=== PATIENT | male | born 1955 | race Caucasian/White ===

== ENCOUNTER → 2017-02-15 | Outpatient (CLI) | payer OTHER | LOC: MW.CHUR 14:26 | PROVIDERS: ATTEND Urology | DX: R35.0 Frequency of micturition (principal); N41.1 Chronic prostatitis | CPT/HCPCS: 81001 ==

== ENCOUNTER → 2017-02-28 | Outpatient (CLI) | payer OTHER | LOC: MW.CHUR 16:03 | PROVIDERS: ATTEND Urology | DX: R35.0 Frequency of micturition (principal); N41.1 Chronic prostatitis | CPT/HCPCS: 81001 ==

== ENCOUNTER 2017-04-18 22:03 | Emergency (ER) | payer OTHER ==
[2017-04-18] MEDS ORDERED: Lidocaine 1% 20 ML MDV INJECT ONE (22:17)
--- NOTE | 2017-04-18 22:19 | EDM.PDOC ---
ED HPI GENERAL MEDICAL PROBLEM - General Chief Complaint: Laceration Stated Complaint: PT FELL AND HURT NOSE Time Seen by Provider: 04/18/17 22:17 Source of Information: Reports: Patient - History of Present Illness INITIAL COMMENTS - FREE TEXT/NARRATIVE: HISTORY AND PHYSICAL: History of present illness: Patient presents with a laceration over the bridge of his nose 1.5 cm, he tripped and fell this morning at 8 AM denies any other injury or loss of consciousness, his glasses cut the bridge of his nose and he presents as such No fever nausea vomiting chills sweats Review of systems: As per history of present illness and below otherwise all systems reviewed and negative. Past medical history: As per history of present illness and as reviewed below otherwise noncontributory. Surgical history: As per history of present illness and as reviewed below otherwise noncontributory. Social history: No reported history of drug or alcohol abuse. Family history: As per history of present illness and as reviewed below otherwise noncontributory. Physical exam: HEENT: Atraumatic, normocephalic, pupils reactive, negative for conjunctival pallor or scleral icterus, mucous membranes moist, throat clear, neck supple, nontender, trachea midline. Lungs: Clear to auscultation, breath sounds equal bilaterally, chest nontender. Heart: S1S2, regular, negative for clicks, rubs, or JVD. Abdomen: Soft, nondistended, nontender. Negative for masses or hepatosplenomegaly. Negative for costovertebral tenderness. Pelvis: Stable nontender. Genitourinary: Deferred. Rectal: Deferred. Extremities: Atraumatic, negative for cords or calf pain. Neurovascular unremarkable. Neuro: Awake, alert, oriented. Cranial nerves II through XII unremarkable. Cerebellum unremarkable. Motor and sensory unremarkable throughout. Exam nonfocal. Skin as per history of present illness otherwise unremarkable Diagnostics: [] Therapeutics: []Lidocaine Tetanus status is updated #3 5-0 Monosof sutures interrupted Standard wound care instructions Bactrim double strength by mouth twice a day #20 no refill Impression: []1.5 cm linear laceration Definitive disposition and diagnosis as appropriate pending reevaluation and review of above. nasal area Pain Score (Numeric/FACES): 1 - Related Data Allergies Allergy/AdvReac Type Severity Reaction Status Date / Time lisinopril Allergy Cough Verified 04/18/17 22:12 Penicillins Allergy Hives Verified 04/18/17 22:12 Home Meds: Home Meds Aspirin [[place] Aspirin] 81 mg PO DAILY 08/25/16 [History] Ergocalciferol (Vitamin D2) [Vitamin D] 400 units PO DAILY 08/25/16 [History] Fish Oil/DHA/EPA [Fish Oil 1,200 MG] 1 tab PO DAILY 08/25/16 [History] Venlafaxine HCl [Venlafaxine HCl ER] 150 mg PO DAILY 08/25/16 [History] atorvaSTATin Calcium [Atorvastatin Calcium] 40 mg PO BEDTIME 08/25/16 [History] Past Medical History Cardiovascular History: Reports: High Cholesterol, Hypertension, [place] Other Cardiovascular History: states hx of mild MD in '06 with reduction in EF. Good exercize tolerance. EKG done yesterday Respiratory History: Reports: Sleep Apnea Other Respiratory History: does not use CPAP Gastrointestinal History: Reports: Colon Polyp Genitourinary History: Reports: BPH Musculoskeletal History: Reports: RA Psychiatric History: Reports: Depression Endocrine/Metabolic History: Reports: Obesity/BMI 30+ (BMI 43.7) - Past Surgical History Head Surgeries/Procedures: Reports: None Other Cardiovascular Surgeries/Procedures: states had angiogram and everything was ok, no stents GI Surgical History: Reports: Colonoscopy (3 years ago) Social & Family History - Tobacco Use Smoking Status *Q: Never Smoker - Recreational Drug Use Drug Use in Last 12 Months: Yes Recreational Drug Type: Reports: Marijuana/Hashish (medical marijuana to treat RA) Other Recreational Drug Type: smokes marijuana to relieve arthritic pain, Recreational Drug Use Frequency: Weekly Recreational Drug Last Use: 08/22/16 ED ROS GENERAL - Review of Systems Review Of Systems: ROS reveals no pertinent complaints other than HPI. ED EXAM, SKIN/RASH Exam: See Below Course - Vital Signs Last Recorded V/S: Last Vital Signs Temp 36.1 C 04/18/17 22:12 Pulse 82 04/18/17 22:12 Resp 16 04/18/17 22:12 BP 129/83 04/18/17 22:12 Pulse Ox 98 04/18/17 22:12 - Orders/Labs/Meds Orders: Active Orders 24 hr Category Date Time Status Vaccines to be Administered [RC] PER UNIT ROUTINE Care 04/18/17 22:22 Active Meds: Medications Discontinued Medications Generic Name Dose Route Start Last Admin Trade Name [place] PRN Reason Stop Dose Admin Diphtheria/Tetanus/Acell Pertussis 0.5 ml 04/18/17 22:22 04/18/17 22:29 Adacel IM 04/18/17 22:23 0.5 ml .ONCE ONE Administration Lidocaine HCl 20 ml 04/18/17 22:17 04/18/17 22:29 Xylocaine 1% INJECT 04/18/17 22:18 20 ml ONETIME ONE Administration Departure - Departure Time of Disposition: 22:55 Disposition: Home, Self-Care 01 Condition: Good Clinical Impression: Laceration - Discharge Information Forms: ED Department Discharge Additional Instructions: Standard wound care as instructed Return if symptoms persist or worsen or fever nausea vomiting chills sweats pus drainage despite antibiotics Medication as prescribed Sutures out in 7 days The following information is given to patients seen in the emergency department who are being discharged to home. This information is to outline your options for follow-up care. We provide all patients seen in our emergency department with a follow-up referral. The need for follow-up, as well as the timing and circumstances, are variable depending upon the specifics of your emergency department visit. If you don't have a primary care physician on staff, we will provide you with a referral. We always advise you to contact your personal physician following an emergency department visit to inform them of the circumstance of the visit and for follow-up with them and/or the need for any referrals to a consulting specialist. The emergency department will also refer you to a specialist when appropriate. This referral assures that you have the opportunity for follow-up care with a specialist. All of these measure are taken in an effort to provide you with optimal care, which includes your follow-up. Under all circumstances we always encourage you to contact your private physician who remains a resource for coordinating your care. When calling for follow-up care, please make the office aware that this follow-up is from your recent emergency room visit. If for any reason you are refused follow-up, please contact the [facility] emergency department at and asked to speak to the emergency department charge nurse. - My Orders Last 24 Hours: My Active Orders 04/18/17 22:22 Vaccines to be Administered [RC] PER UNIT ROUTINE - Assessment/Plan Last 24 Hours: My Active Orders 04/18/17 22:22 Vaccines to be Administered [RC] PER UNIT ROUTINE
[2017-04-18] MEDS ORDERED: Diphtheria,Pertussis(Acell),Tetanus Vaccine 0.5 ML Syringe IM ONE (22:22)
[2017-04-18 23:07] VITALS: BP 129/76
== END 2017-04-18 23:05 | disposition home or self-care (01) ==
LOC: MW.ED 22:03
DX: S01.21XA Laceration without foreign body of nose, initial encounter (principal); E78.00 Pure hypercholesterolemia, unspecified; I10 Essential (primary) hypertension; I25.2 Old myocardial infarction; F32.9 Major depressive disorder, single episode, unspecified; E66.9 Obesity, unspecified; Z88.0 Allergy status to penicillin; Z68.41 Body mass index [BMI] 40.0-44.9, adult; Z79.82 Long term (current) use of aspirin; Z79.899 Other long term (current) drug therapy; W01.0XXA Fall on same level from slipping, tripping and stumbling without subsequent striking against object, initial encounter
CPT/HCPCS: 12011; 90471; 90715; 99282-25; 99283

== ENCOUNTER 2019-11-27 06:33 | Day surgery (SDC) | payer OTHER ==
[~2019-11-27 06:33] MED LIST: Lactated Ringers 1,000 ML IV SCH
--- NOTE | 2019-11-27 07:05 | PCM.PREANE ---
Preanesthetic Assessment - Anesthesia/Transfusion/Family Hx Anesthesia History: Prior Anesthesia Without Reaction Family History of Anesthesia Reaction: No Transfusion History: No Prior Transfusion(s) Intubation History: Unknown - Review of Systems General: No Symptoms Pulmonary: No Symptoms Cardiovascular: No Symptoms Gastrointestinal: No Symptoms, Other (h/o colon polyps '13 x2 and '16 x1) Neurological: No Symptoms Other: Reports: None - Physical Assessment Height: 5 ft 11 in Weight: 146.057 kg ASA Class: 3 Mental Status: Alert & Oriented x3 Airway Class: Mallampati = 2 Dentition: Reports: Normal Dentition, [place](s) (x4 right lowwer and x1 left upper) Thyro-Mental Finger Breadths: 3 Mouth Opening Finger Breadths: 3 ROM/Head Extension: Full Lungs: Clear to Auscultation, Normal Respiratory Effort Cardiovascular: Regular Rate, Regular Rhythm - Allergies Allergies/Adverse Reactions: Allergies Allergy/AdvReac Type Severity Reaction Status Date / Time lisinopril Allergy Cough Verified 11/22/19 07:05 Penicillins Allergy Hives Verified 11/22/19 07:05 - Blood Blood Available: No - Anesthesia Plan Pre-Op Medication Ordered: None - Acknowledgements Anesthesia Type Planned: MAC Pt an Appropriate Candidate for the Planned Anesthesia: Yes Alternatives and Risks of Anesthesia Discussed w Pt/Guardian: Yes Pt/Guardian Understands and Agrees with Anesthesia Plan: Yes PreAnesthesia Questionnaire HEENT History: Reports: Other (See Below) Other HEENT History: wears glasses Cardiovascular History: Reports: High Cholesterol, Hypertension, [place] Other Cardiovascular History: states hx of stress related heart attack ( small one in '06 ), showed up on EKG, angiogram done with no blockage, was informed that one ventricle is pumping at 60% Respiratory History: Reports: None, Other (See Below) (quationable sleep apnea, never been tested) Gastrointestinal History: Reports: Colon Polyp Genitourinary History: Reports: BPH Musculoskeletal History: Reports: Osteoarthritis Other Musculoskeletal History: chronic shoulder and neck pain, Neurological History: Reports: None Psychiatric History: Reports: Depression, Other (See Below) Other Psychiatric History: states "due to stress related heart attack they put me on venlafaxine" Endocrine/Metabolic History: Reports: Obesity/BMI 30+ Other Endocrine/Metabolic History: "prediabetic" on victoza Hematologic History: Reports: None Immunologic History: Reports: None Oncologic (Cancer) History: Reports: None Dermatologic History: Reports: None - Infectious Disease History Infectious Disease History: Reports: None - Past Surgical History Head Surgeries/Procedures: Reports: None HEENT Surgical History: Reports: None Cardiovascular Surgical History: Reports: Other (See Below) Other Cardiovascular Surgeries/Procedures: states had angiogram and everything was ok, no stents Respiratory Surgical History: Reports: None GI Surgical History: Reports: Colonoscopy (x2 and ) Male Surgical History: Reports: None Endocrine Surgical History: Reports: None Neurological Surgical History: Reports: None Musculoskeletal Surgical History: Reports: None Oncologic Surgical History: Reports: None Dermatological Surgical History: Reports: None - SUBSTANCE USE Smoking Status *Q: Never Smoker Recreational Drug Type: Reports: Marijuana/Hashish - HOME MEDS Home Medications: Home Meds Aspirin [[place] Aspirin EC] 81 mg PO DAILY 08/25/16 [History] Venlafaxine HCl [Venlafaxine HCl ER] 150 mg PO DAILY 08/25/16 [History] atorvaSTATin Calcium [Atorvastatin Calcium] 40 mg PO BEDTIME 08/25/16 [History] Cyclobenzaprine HCl 10 mg PO ASDIRECTED PRN 11/22/19 [History] Liraglutide [Victoza] 1 injection SUBCUT ASDIRECTED 11/22/19 [History] Losartan Potassium 25 mg PO DAILY 11/22/19 [History] - CURRENT (IN HOUSE) MEDS Current Meds: Current Medications Lactated Ringer's (Ringers, Lactated) 1,000 mls @ 125 mls/hr IV ASDIRECTED [facility]
[2019-11-27] MEDS ORDERED: Midazolam 1 MG/ML 2 ML SDV ONE (07:17)
[2019-11-27] MEDS ORDERED: Propofol 200 MG/20 ML SDV ONE (07:17)
[2019-11-27] MEDS ORDERED: fentaNYL 100 MCG/2 ML SDV ONE (07:17)
[2019-11-27] MEDS ORDERED: Ondansetron 4 MG/2 ML SDV ONE (07:17)
--- NOTE | 2019-11-27 08:43 | PCM.OPNOTE ---
- General Post-Op/Procedure Note Date of Surgery/Procedure: 11/27/19 Operative Procedure(s): colonoscopy with biopsy Findings: see [id number] Pre Op Diagnosis: increase constipation Post-Op Diagnosis: Same Anesthesia Technique: Moderate Sedation Primary Surgeon: Abhi Jones Pathology: biospy at 25cm to 30cm when scope withdrawal for hyperemic Complications: None Condition: Good
--- NOTE | 2019-11-27 08:51 | PCM.POSTAN ---
POST ANESTHESIA ASSESSMENT - MENTAL STATUS Mental Status: Alert, Oriented - VITAL SIGNS Vital Signs: Last Vital Signs Temp 36.5 C 11/27/19 06:45 Pulse 71 11/27/19 08:43 Resp 13 11/27/19 08:43 BP 113/66 11/27/19 08:43 Pulse Ox 93 L 11/27/19 08:43 - RESPIRATORY Respiratory Status: Respiratory Rate WNL, Airway Patent, O2 Saturation Stable - CARDIOVASCULAR CV Status: Pulse Rate WNL, Blood Pressure Stable - GASTROINTESTINAL GI Status: No Symptoms - PAIN Pain Score: 0 - POST OP HYDRATION Hydration Status: Adequate & Stable - OBSERVATIONS Free Text/Narrative:: No anesthesia problems.
--- NOTE | 2019-11-27 09:03 | PCM48HPAN ---
Post Anesthesia Note - EVALUATION WITHIN 48HRS OF ANESTHETIC Vital Signs in Normal Range: Yes Patient Participated in Evaluation: Yes Respiratory Function Stable: Yes Airway Patent: Yes Cardiovascular Function Stable: Yes Hydration Status Stable: Yes Pain Control Satisfactory: Yes Nausea and Vomiting Control Satisfactory: Yes Mental Status Recovered: Yes Vital Signs: Last Vital Signs Temp 36.5 C 11/27/19 06:45 Pulse 71 11/27/19 08:43 Resp 13 11/27/19 08:43 BP 113/66 11/27/19 08:43 Pulse Ox 93 L 11/27/19 08:43 - COMMENTS/OBSERVATIONS Free Text/Narrative:: No anesthesia problems.
[2019-11-27 09:44] VITALS: BP 111/41; PULSE 72
--- NOTE | 2019-11-27 11:26 | OR ---
SURGEON: Abhi Jones MD DATE OF PROCEDURE: 11/27/2019 PREOPERATIVE DIAGNOSES: Increased constipation and history of colon polyp. POSTOPERATIVE DIAGNOSES: Increased constipation and history of colon polyp. PROCEDURE PERFORMED: Colonoscopy with biopsy. PRIMARY SURGEON: Abhi Jones MD. COMPLICATIONS: None. DESCRIPTION OF PROCEDURE: The patient was taken to the endoscopy room. A time out was called, patient identified, and procedure identified. Diprivan was then administrated. Patient went from awake to sleep, hearing doctor talking or door closing is normal. Perineum inspection and digital examination were then performed. A well- lubricated colonoscope was gently inserted through the rectum, advanced past the rectosigmoid junction, the descending colon, splenic flexure, transverse colon, hepatic flexure, ascending colon, arrived to the cecum. Cecum was identified as dictated in the finding. Then the scope was carefully withdrawn while attention was paid to the mucosal surface for any abnormality. Air will be sucked out during the scope withdrawal. At the rectum, retroflexed to examine any rectal diseases, fistula or hemorrhoids. During mucosal examination, abnormality or polyp was noted; picture taken and biopsy performed. Patient tolerated procedure well. There were no intraoperative complications, and Dr. Jones was present throughout the whole procedure. FINDINGS: 1. The patient is easily sedated with SHUTTLE TRUCK DRIVER and Diprivan, the patient is soundly snoring. 2. The patient's bowel prep is left to be desirable with tremendous amount liquid stool and covering significant area of mucosa. Despite irrigation, is not able to get a good look and this is a compromised study. On top of this, the patient is obese and has a very redundant sigmoid colon. Had to be put on his back and with pressure on the left lower quadrant in order to get to the cecum. Cecum indicated by ileocecal fold, one-to-one indentation, and appendiceal orifice. Light emittance is not observed. ScopeGuide is pointing south. Mucosa examined upon scope pulling out with constant irrigation. The patient has quite a lot of diverticula at the left colon. No signs or symptoms of inflammation to suggest diverticulitis. However, diverticulum of the lumen is almost as big as a true lumen, so for colonoscopy there are risks for possible perforation. The patient does not have polyp, but has some area seen from 25 to 30 when the scope come out, hyperemic, and random biopsy in this area performed. Two patches of hyperemia, one is at 30 cm when scope pulling out and one is at 25 cm, and both have been biopsied. If abnormal, probably have to be referred out to GI for further study. Other than that, no inflammation, mass, growth, stricture, ulceration, AV malformation observed. Tried to retroflex to look at the rectum. The patient's obesity makes it difficult. Was able to look at it by pulling the scope out slowly. The patient would benefit from repeat colonoscopy 18 months from today or if clinically indicated otherwise because of bowel prep and some of the other issue. The patient's colonoscopy is not straightforward because of obesity and tremendous redundant sigmoid colon. MARIBEL / JUAN DIEGO /[id number]
== END 2019-11-27 09:15 | disposition home or self-care (01) ==
LOC: MW.SDS 06:33
PROVIDERS: ATTEND Surgery
DX: K59.00 Constipation, unspecified (principal); Q43.8 Other specified congenital malformations of intestine; I25.10 Atherosclerotic heart disease of native coronary artery without angina pectoris; I10 Essential (primary) hypertension; E78.00 Pure hypercholesterolemia, unspecified; M17.12 Unilateral primary osteoarthritis, left knee; F32.9 Major depressive disorder, single episode, unspecified; E66.9 Obesity, unspecified; Z86.010 Personal history of colon polyps; Z88.8 Allergy status to other drugs, medicaments and biological substances; Z88.0 Allergy status to penicillin; Z79.82 Long term (current) use of aspirin; Z79.899 Other long term (current) drug therapy; Z68.41 Body mass index [BMI] 40.0-44.9, adult
CPT/HCPCS: 45380; 82962; J2250; J2405; J2704; J3010; J7120; 88305

== ENCOUNTER 2021-07-09 06:42 | Day surgery (SDC) | payer OTHER ==
[2021-07-09] MEDS ORDERED: fentaNYL 100 MCG/2 ML SDV ONE (06:58)
[2021-07-09] MEDS ORDERED: Propofol 200 MG/20 ML SDV ONE ×2 (06:58→08:02)
--- NOTE | 2021-07-09 07:17 | PCM.PREANE ---
Preanesthetic Assessment - Procedure Proposed Procedure: Colonoscopy - Anesthesia/Transfusion/Family Hx Anesthesia History: No Prior Anesthesia Other Type of Anesthesia Reaction Comment: Pt has only had sedation for Colonoscopy Family History of Anesthesia Reaction: No Transfusion History: No Prior Transfusion(s) Intubation History: Unknown - Review of Systems General: No Symptoms Pulmonary: No Symptoms Cardiovascular: No Symptoms (HTN, HLD) Gastrointestinal: No Symptoms Neurological: No Symptoms Other: Reports: None - Physical Assessment NPO Status Date: 07/07/21 NPO Status Time: 21:00 Vital Signs: Last Vital Signs Temp 96.8 F L 07/09/21 07:06 Pulse 82 07/09/21 07:06 Resp 16 07/09/21 07:06 BP 135/70 07/09/21 07:06 Pulse Ox 96 07/09/21 07:06 Height: 5 ft 11 in Weight: 144.242 kg (Morbid Obesity) ASA Class: 3 Mental Status: Alert & Oriented x3 Airway Class: Mallampati = 3 Dentition: Reports: Broken Tooth/Teeth (R, U broken root canal) Thyro-Mental Finger Breadths: 3 Mouth Opening Finger Breadths: 3 ROM/Head Extension: Full Lungs: Clear to Auscultation, Normal Respiratory Effort Cardiovascular: Regular Rate, Regular Rhythm - Allergies Allergies/Adverse Reactions: Allergies Allergy/AdvReac Type Severity Reaction Status Date / Time lisinopril Allergy Cough Verified 07/05/21 11:06 Penicillins Allergy Hives Verified 07/05/21 11:06 - Acknowledgements Anesthesia Type Planned: General Anesthesia Pt an Appropriate Candidate for the Planned Anesthesia: Yes Alternatives and Risks of Anesthesia Discussed w Pt/Guardian: Yes Pt/Guardian Understands and Agrees with Anesthesia Plan: Yes PreAnesthesia Questionnaire HEENT History: Reports: Other (See Below) Other HEENT History: wears glasswes, has lower permanent dental bridge (right side), states has infection in upper jaw per MRI- no symptoms Cardiovascular History: Reports: High Cholesterol, Hypertension, [place] Other Cardiovascular History: states [place] per EKG- no symptoms but was told it was stress related Respiratory History: Reports: None, Other (See Below) Other Respiratory History: was told by Anesthesia he had sleep apnea- has never been tested Gastrointestinal History: Reports: None Genitourinary History: Reports: BPH Musculoskeletal History: Reports: Osteoarthritis Other Musculoskeletal History: arthritis in neck Neurological History: Reports: None Psychiatric History: Reports: None Other Psychiatric History: states "due to stress related heart attack they put me on venlafaxine" Endocrine/Metabolic History: Reports: Obesity/BMI 30+, Other (See Below) Other Endocrine/Metabolic History: pre-diabetic Hematologic History: Reports: None Immunologic History: Reports: None Oncologic (Cancer) History: Reports: None Dermatologic History: Reports: None - Infectious Disease History Infectious Disease History: Reports: None - Past Surgical History Head Surgeries/Procedures: Reports: None HEENT Surgical History: Reports: None Cardiovascular Surgical History: Reports: None Other Cardiovascular Surgeries/Procedures: states had angiogram and everything was ok, no stents Respiratory Surgical History: Reports: None GI Surgical History: Reports: Colonoscopy Male Surgical History: Reports: None Endocrine Surgical History: Reports: None Neurological Surgical History: Reports: None Musculoskeletal Surgical History: Reports: None Oncologic Surgical History: Reports: None Dermatological Surgical History: Reports: None - SUBSTANCE USE Tobacco Use Status *Q: Never Tobacco User Recreational Drug Use History: Yes Recreational Drug Type: Reports: Marijuana/Hashish - HOME MEDS Home Medications: Home Meds Aspirin [[place] Aspirin EC] 81 mg PO DAILY 08/25/16 [History] Venlafaxine HCl [Venlafaxine HCl ER] 150 mg PO DAILY 08/25/16 [History] atorvaSTATin Calcium [Atorvastatin Calcium] 40 mg PO BEDTIME 08/25/16 [History] Cyclobenzaprine HCl 10 mg PO ASDIRECTED PRN 11/22/19 [History] Losartan Potassium 25 mg PO BEDTIME 11/22/19 [History] Cholecalciferol (Vitamin D3) [Vitamin D3] 400 unit PO DAILY 07/05/21 [History] Folic Acid 1 mg PO DAILY 07/05/21 [History] Multivitamin 1 tab PO DAILY 07/05/21 [History] Semaglutide [Ozempic] 0.5 ml SQ WEEKLY 07/05/21 [History] Sildenafil Citrate [Viagra] 100 mg PO ASDIRECTED PRN 07/05/21 [History] diphenhydrAMINE HCL [Benadryl Allergy] 25 mg PO BEDTIME PRN 07/05/21 [History] - CURRENT (IN HOUSE) MEDS Current Meds: Current Medications Lactated Ringer's (Ringers, Lactated) 1,000 mls @ 125 mls/hr IV ASDIRECTED [facility] Last Admin: 10/01/21 07:11 Dose: 125 mls/hr Documented by: Discontinued Medications Fentanyl (Fentanyl 100 Mcg/2 Ml Sdv) Confirm Administered Dose 100 mcg .ROUTE .STK-MED ONE Stop: 07/09/21 06:59 Lidocaine HCl (Lidocaine 1% 5 Ml Sdv) Confirm Administered Dose 5 ml .ROUTE .STK-MED ONE Stop: 07/09/21 06:59 Propofol (Propofol 200 Mg/20 Ml Sdv) Confirm Administered Dose 400 mg .ROUTE .STK-MED ONE Stop: 07/09/21 06:59
--- NOTE | 2021-07-09 08:34 | PCM.OPNOTE ---
- General Post-Op/Procedure Note Date of Surgery/Procedure: 07/09/21 Operative Procedure(s): colonoscopy w bx Findings: see [id number] Pre Op Diagnosis: tv polyp history Post-Op Diagnosis: Same Anesthesia Technique: Moderate Sedation Primary Surgeon: Abhi Jones Pathology: 4 - 5 mm sessile polyps at distance 100cm and 85 cm when scope pulled out Complications: None Condition: Good
--- NOTE | 2021-07-09 08:37 | PCM.POSTAN ---
POST ANESTHESIA ASSESSMENT - MENTAL STATUS Mental Status: Alert, Oriented - VITAL SIGNS Vital Signs: Last Vital Signs Temp 98.1 F 07/09/21 08:28 Pulse 71 07/09/21 08:33 Resp 15 07/09/21 08:33 BP 120/72 07/09/21 08:33 Pulse Ox 93 L 07/09/21 08:33 - RESPIRATORY Respiratory Status: Respiratory Rate WNL, Airway Patent - CARDIOVASCULAR CV Status: Pulse Rate WNL, Blood Pressure Stable - GASTROINTESTINAL GI Status: No Symptoms - PAIN Pain Score: 0 - POST OP HYDRATION Hydration Status: Adequate & Stable
--- NOTE | 2021-07-09 08:41 | PCM48HPAN ---
Post Anesthesia Note - EVALUATION WITHIN 48HRS OF ANESTHETIC Vital Signs in Normal Range: Yes Patient Participated in Evaluation: Yes Respiratory Function Stable: Yes Airway Patent: Yes Cardiovascular Function Stable: Yes Hydration Status Stable: Yes Pain Control Satisfactory: Yes Nausea and Vomiting Control Satisfactory: Yes Mental Status Recovered: Yes Vital Signs: Last Vital Signs Temp 98.1 F 07/09/21 08:28 Pulse 77 07/09/21 08:38 Resp 16 07/09/21 08:38 BP 123/82 07/09/21 08:38 Pulse Ox 96 07/09/21 08:38 - COMMENTS/OBSERVATIONS Free Text/Narrative:: Pt doing well post-op. VSS. No apparent anesthetic complications. Dr. Blanco Ghosh
[2021-07-09 08:54] VITALS: BP 124/78; PULSE 76
--- NOTE | 2021-07-09 13:30 | OR ---
SURGEON: Abhi Jones MD DATE OF PROCEDURE: 07/09/2021 PREOPERATIVE DIAGNOSIS: History of tubulovillous polyp. POSTOPERATIVE DIAGNOSIS: History of tubulovillous polyp. PROCEDURE PERFORMED: Colonoscopy with biopsy. DESCRIPTION OF PROCEDURE: The patient was taken to the endoscopy room. A time out was called, patient identified, and procedure identified. Diprivan was then administrated. Patient went from awake to sleep, hearing doctor talking or door closing is normal. Perineum inspection and digital examination were then performed. A well- lubricated colonoscope was gently inserted through the rectum, advanced past the rectosigmoid junction, the descending colon, splenic flexure, transverse colon, hepatic flexure, ascending colon, arrived to the cecum. Cecum was identified as dictated in the finding. Then the scope was carefully withdrawn while attention was paid to the mucosal surface for any abnormality. Air will be sucked out during the scope withdrawal. At the rectum, retroflexed to examine any rectal diseases, fistula or hemorrhoids. During mucosal examination, abnormality or polyp was noted; picture taken and biopsy performed. Patient tolerated procedure well. There were no intraoperative complications, and Dr. Jones was present throughout the whole procedure. FINDINGS: 1. Patient is easily sedated with SECOND CUTTER and Diprivan, patient is soundly snoring. 2. Bowel prep is much, much improved this time. Very little liquid stool, no semi-formed stool, and a couple of small stool balls from diverticulosis. Has a lot of bubble that require some irrigation. Colon is pretty redundant at the sigmoid area and negotiation around that takes some time and so did hepatic fracture, both of them requiring some maneuver. Cecum indicated by ileocecal fold, one-to-one indentation, and appendiceal orifice and [place] foot. ScopeGuide is pointing South. Mucosa examined upon scope pulling out with constant irrigation, patient has two small polyps, very small, 4 to 5 mm, sessile at distance 100 and 85 cm when scope withdrew. They were removed with cold biopsy forceps. The patient also has a lot of diverticulosis at the left colon. No signs or symptoms of diverticulitis. Has some mild internal hemorrhoids. Patient would benefit from repeat colonoscopy probably three years from today or longer, depends on the pathology of the polyp or if clinically indicated otherwise. As always, thank you for the kind referral. MARIBEL ADAMSON /[id number] DERIK
== END 2021-07-09 08:59 | disposition home or self-care (01) ==
LOC: MW.SDS 06:42
PROVIDERS: ATTEND Surgery
DX: D12.6 Benign neoplasm of colon, unspecified (principal); K57.30 Diverticulosis of large intestine without perforation or abscess without bleeding; K64.8 Other hemorrhoids; I25.10 Atherosclerotic heart disease of native coronary artery without angina pectoris; I10 Essential (primary) hypertension; E78.00 Pure hypercholesterolemia, unspecified; I25.2 Old myocardial infarction; Z98.890 Other specified postprocedural states; Z88.8 Allergy status to other drugs, medicaments and biological substances; Z88.0 Allergy status to penicillin; Z79.82 Long term (current) use of aspirin; Z79.899 Other long term (current) drug therapy; Z82.49 Family history of ischemic heart disease and other diseases of the circulatory system
CPT/HCPCS: 45380; 88305; J2704; J3010; J7120

== ENCOUNTER 2021-07-12 22:24 | Inpatient (IN) | payer OTHER ==
[2021-07-12] MEDS ORDERED: Morphine 4 MG/ML Syringe IVPUSH ONE (23:32)
--- NOTE | 2021-07-12 23:35 | EDM.PDOC ---
ED HPI GENERAL MEDICAL PROBLEM - General Chief Complaint: Abdominal Pain Stated Complaint: GUT PAIN Time Seen by Provider: 07/12/21 22:25 Source of Information: Reports: Patient History Limitations: Reports: No Limitations - History of Present Illness INITIAL COMMENTS - FREE TEXT/NARRATIVE: Patient is a 61-year-old male presents today with diffuse mariana pain. He had a colonoscopy done a few days ago and states the pain started last night. Feels his belly is getting bigger than what he normally is. Pain does not radiate the pain is made worse with touching his abdomen direction. He denies any nausea vomiting diarrhea or blood in the stool. Denies any injuries or direct hits to this abdomen. States when he had a colonoscopy did remove few polyps and took some biopsies. abdomen Pain Score (Numeric/FACES): 8 - Related Data Allergies Allergy/AdvReac Type Severity Reaction Status Date / Time lisinopril Allergy Cough Verified 07/12/21 23:06 Penicillins Allergy Hives Verified 07/12/21 23:06 Home Meds: Home Meds Aspirin [[place] Aspirin EC] 81 mg PO DAILY 08/25/16 [History] Venlafaxine HCl [Venlafaxine HCl ER] 150 mg PO DAILY 08/25/16 [History] atorvaSTATin Calcium [Atorvastatin Calcium] 40 mg PO BEDTIME 08/25/16 [History] Cyclobenzaprine HCl 10 mg PO ASDIRECTED PRN 11/22/19 [History] Losartan Potassium 25 mg PO BEDTIME 11/22/19 [History] Cholecalciferol (Vitamin D3) [Vitamin D3] 400 unit PO DAILY 07/05/21 [History] Folic Acid 1 mg PO DAILY 07/05/21 [History] Multivitamin 1 tab PO DAILY 07/05/21 [History] Semaglutide [Ozempic] 0.5 ml SQ WEEKLY 07/05/21 [History] Sildenafil Citrate [Viagra] 100 mg PO ASDIRECTED PRN 07/05/21 [History] diphenhydrAMINE HCL [Benadryl Allergy] 25 mg PO BEDTIME PRN 07/05/21 [History] Past Medical History HEENT History: Reports: Other (See Below) Other HEENT History: wears glasswes, has lower permanent dental bridge (right side), states has infection in upper jaw per MRI- no symptoms Cardiovascular History: Reports: High Cholesterol, Hypertension, [place] Other Cardiovascular History: states WI per EKG- no symptoms but was told it was stress related Respiratory History: Reports: Sleep Apnea, Other (See Below) Other Respiratory History: was told by Anesthesia he had sleep apnea- has never been tested Gastrointestinal History: Reports: None Genitourinary History: Reports: BPH Musculoskeletal History: Reports: Osteoarthritis Other Musculoskeletal History: arthritis in neck Neurological History: Reports: None Psychiatric History: Reports: Other (See Below) Other Psychiatric History: states "due to stress related heart attack they put me on venlafaxine" Endocrine/Metabolic History: Reports: Obesity/BMI 30+, Other (See Below) Other Endocrine/Metabolic History: pre-diabetic Hematologic History: Reports: None Immunologic History: Reports: None Oncologic (Cancer) History: Reports: None Dermatologic History: Reports: None - Infectious Disease History Infectious Disease History: Reports: Chicken Pox, Measles, Shingles - Past Surgical History Head Surgeries/Procedures: Reports: None HEENT Surgical History: Reports: None Cardiovascular Surgical History: Reports: None Other Cardiovascular Surgeries/Procedures: states had angiogram and everything was ok, no stents Respiratory Surgical History: Reports: None GI Surgical History: Reports: Colonoscopy Male Surgical History: Reports: None Endocrine Surgical History: Reports: None Neurological Surgical History: Reports: None Musculoskeletal Surgical History: Reports: None Oncologic Surgical History: Reports: None Dermatological Surgical History: Reports: None Social & Family History - Family History Family Medical History: No Pertinent Family History - Tobacco Use Tobacco Use Status *Q: Never Tobacco User - Caffeine Use Caffeine Use: Reports: Coffee - Recreational Drug Use Recreational Drug Use: Yes Drug Use in Last 12 Months: Yes Recreational Drug Type: Reports: Marijuana/Hashish Recreational Drug Use Frequency: Daily ED ROS GENERAL - Review of Systems Review Of Systems: See Below Constitutional: Reports: No Symptoms HEENT: Reports: No Symptoms Respiratory: Reports: No Symptoms Cardiovascular: Reports: No Symptoms Endocrine: Reports: No Symptoms GI/Abdominal: Reports: Abdominal Pain : Reports: No Symptoms Musculoskeletal: Reports: No Symptoms Skin: Reports: No Symptoms Neurological: Reports: No Symptoms Psychiatric: Reports: No Symptoms Hematologic/Lymphatic: Reports: No Symptoms Immunologic: Reports: No Symptoms ED EXAM, GI/ABD - Physical Exam Exam: See Below Exam Limited By: No Limitations General Appearance: Alert, WD/WN, No Apparent Distress Head: Atraumatic, Normocephalic Respiratory/Chest: No Respiratory Distress, Lungs Clear, Normal Breath Sounds Cardiovascular: Normal Peripheral Pulses, Regular Rate, Rhythm GI/Abdominal Exam: Distended, Tender (Diffusely) Extremities: Normal Inspection, Normal Range of Motion Neurological: Alert, Oriented, Normal Cognition, Normal Gait #1 Interpretation EKG Date: 07/12/21 Time: 23:03 Rhythm: NSR Rate (Beats/Min): 91 ST-T: Normal Course - Vital Signs Last Recorded V/S: Last Vital Signs Temp 98.2 F 07/12/21 23:07 Pulse 96 07/13/21 06:33 Resp 18 07/13/21 06:33 BP 113/80 07/13/21 06:33 Pulse Ox 97 07/13/21 06:33 - Orders/Labs/Meds Orders: Active Orders 24 hr Category Date Time Status Patient Status [ADT] Routine ADT 07/13/21 05:08 Active Sodium Chloride 0.9% [Normal Saline] 1,000 ml Med 07/13/21 02:30 Active IV ASDIRECTED Medication Orders Sodium Chloride (Normal Saline) 1,000 mls @ 150 mls/hr IV ASDIRECTED RENEA Last Admin: 07/13/21 02:44 Dose: 150 mls/hr Documented by: ALICIA Labs: Laboratory Tests 07/12/21 07/12/21 07/12/21 Range/Units 23:28 23:28 23:28 WBC 7.22 (4.0-11.0) K/uL RBC 4.73 (4.50-5.90) M/uL Hgb 14.4 (13.0-17.0) g/dL Hct 41.4 (38.0-50.0) % MCV 87.5 (80.0-98.0) fL MCH 30.4 (27.0-32.0) pg MCHC 34.8 (31.0-37.0) g/dL RDW Std Deviation 44.3 (28.0-62.0) fl RDW Coeff of Polly 14 (11.0-15.0) % Plt Count 327 (150-400) K/uL MPV 9.50 (7.40-12.00) fL Neut % (Auto) 81.0 H (48.0-80.0) % Lymph % (Auto) 12.7 L (16.0-40.0) % Dubois % (Auto) 6.1 (0.0-15.0) % Eos % (Auto) 0.1 (0.0-7.0) % Baso % (Auto) 0.1 (0.0-1.5) % Neut # (Auto) 5.8 H (1.4-5.7) K/uL Lymph # (Auto) 0.9 (0.6-2.4) K/uL Dubois # (Auto) 0.4 (0.0-0.8) K/uL Eos # (Auto) 0.0 (0.0-0.7) K/uL Baso # (Auto) 0.0 (0.0-0.1) K/uL Nucleated RBC % 0.0 /100WBC Nucleated RBCs # 0 K/uL Sodium 136 (136-148) mmol/L Potassium 4.0 (3.5-5.1) mmol/L Chloride 95 L (98-107) mmol/L Carbon Dioxide 28.9 (21.0-32.0) mmol/L BUN 10 (7.0-18.0) mg/dL Creatinine 1.2 (0.8-1.3) mg/dL Est Cr Clr Drug Dosing 64.49 mL/min Estimated GFR (MDRD) > 60.0 ml/min Glucose 173 H (74-106) mg/dL Lactic Acid 1.9 (0.4-2.0) mmol/L Calcium 8.4 L (8.5-10.1) mg/dL Phosphorus 3.3 (2.6-4.7) mg/dL Magnesium 1.5 L (1.8-2.4) mg/dL Total Bilirubin 0.6 (0.2-1.0) mg/dL AST 17 (15-37) IU/L ALT 28 (14-63) IU/L Alkaline Phosphatase 71 (46-116) U/L Total Protein 8.1 (6.4-8.2) g/dL Albumin 3.5 (3.4-5.0) g/dL Globulin 4.6 H (2.6-4.0) g/dL Albumin/Globulin Ratio 0.8 L (0.9-1.6) Lipase 71 L (73-393) U/L SARS-CoV-2 RNA (ARJUN) (NEGATIVE) 07/13/21 Range/Units 02:28 WBC (4.0-11.0) K/uL RBC (4.50-5.90) M/uL Hgb (13.0-17.0) g/dL Hct (38.0-50.0) % MCV (80.0-98.0) fL MCH (27.0-32.0) pg MCHC (31.0-37.0) g/dL RDW Std Deviation (28.0-62.0) fl RDW Coeff of Polly (11.0-15.0) % Plt Count (150-400) K/uL MPV (7.40-12.00) fL Neut % (Auto) (48.0-80.0) % Lymph % (Auto) (16.0-40.0) % Dubois % (Auto) (0.0-15.0) % Eos % (Auto) (0.0-7.0) % Baso % (Auto) (0.0-1.5) % Neut # (Auto) (1.4-5.7) K/uL Lymph # (Auto) (0.6-2.4) K/uL Dubois # (Auto) (0.0-0.8) K/uL Eos # (Auto) (0.0-0.7) K/uL Baso # (Auto) (0.0-0.1) K/uL Nucleated RBC % /100WBC Nucleated RBCs # K/uL Sodium (136-148) mmol/L Potassium (3.5-5.1) mmol/L Chloride (98-107) mmol/L Carbon Dioxide (21.0-32.0) mmol/L BUN (7.0-18.0) mg/dL Creatinine (0.8-1.3) mg/dL Est Cr Clr Drug Dosing mL/min Estimated GFR (MDRD) ml/min Glucose (74-106) mg/dL Lactic Acid (0.4-2.0) mmol/L Calcium (8.5-10.1) mg/dL Phosphorus (2.6-4.7) mg/dL Magnesium (1.8-2.4) mg/dL Total Bilirubin (0.2-1.0) mg/dL AST (15-37) IU/L ALT (14-63) IU/L Alkaline Phosphatase (46-116) U/L Total Protein (6.4-8.2) g/dL Albumin (3.4-5.0) g/dL Globulin (2.6-4.0) g/dL Albumin/Globulin Ratio (0.9-1.6) Lipase (73-393) U/L SARS-CoV-2 RNA (ARJUN) NEGATIVE (NEGATIVE) Meds: Medications Generic Name Dose Route Start Last Admin Trade Name Berkley PRN Reason Stop Dose Admin Sodium Chloride 1,000 mls @ 150 mls/hr 07/13/21 02:30 07/13/21 02:44 Normal Saline IV 150 mls/hr ASDIRECTED RENEA Administration Discontinued Medications Generic Name Dose Route Start Last Admin Trade Name Berkley PRN Reason Stop Dose Admin Bupivacaine HCl Confirm 07/13/21 06:07 Bupivacaine 0.5% 10 Ml Sdv Administered 07/13/21 06:08 Dose 10 ml .ROUTE .STK-MED ONE Dexamethasone Confirm 07/13/21 06:19 Dexamethasone 4 Mg/Ml 5 Ml Mdv Administered 07/13/21 06:20 Dose 20 mg .ROUTE .STK-MED ONE Fentanyl Confirm 07/13/21 06:20 Fentanyl 100 Mcg/2 Ml Sdv Administered 07/13/21 06:21 Dose 200 mcg .ROUTE .STK-MED ONE Cefoxitin Sodium 2 gm/ Sodium 100 mls @ 200 mls/hr 07/13/21 02:06 07/13/21 02:44 Chloride IV 07/13/21 02:35 Not Given ONETIME ONE Cefoxitin Sodium Confirm 07/13/21 02:29 07/13/21 02:47 Mefoxin In Dextrose,Iso-Osm 2 Gm/50 Ml Administered 07/13/21 02:30 Not Given Dose 50 mls @ as directed .ROUTE .STK-MED ONE Cefoxitin Sodium 2 gm/ Premix 50 mls @ 100 mls/hr 07/13/21 02:47 07/13/21 03:00 IV 07/13/21 03:16 100 mls/hr ONETIME ONE Administration Iopamidol 100 ml 07/13/21 01:16 07/13/21 01:16 Iopamidol 755 Mg/Ml 500 Ml Multipack Bottle IVPUSH 07/13/21 01:17 100 ml ONETIME STA Administration Lidocaine HCl Confirm 07/13/21 06:19 Lidocaine 2% 100 Mg/5 Ml Syringe Administered 07/13/21 06:20 Dose 100 mg .ROUTE .STK-MED ONE Midazolam HCl Confirm 07/13/21 06:20 Midazolam 1 Mg/Ml 2 Ml Sdv Administered 07/13/21 06:21 Dose 2 mg .ROUTE .STK-MED ONE Morphine Sulfate 4 mg 07/12/21 23:32 07/12/21 23:37 Morphine 4 Mg/Ml Syringe IVPUSH 07/12/21 23:33 4 mg ONETIME ONE Administration Octyl Cyanoacrylate Confirm 07/13/21 06:08 Octyl 2-Cyanoacrylate 1 Tube Administered 07/13/21 06:09 Dose 1 applic .ROUTE .STK-MED ONE Ondansetron HCl 4 mg 07/12/21 23:38 07/12/21 23:41 Ondansetron 4 Mg/2 Ml Sdv IVPUSH 07/12/21 23:39 4 mg ONETIME ONE Administration Ondansetron HCl 4 mg 07/12/21 23:38 07/12/21 23:41 Ondansetron 4 Mg/2 Ml Sdv IVPUSH 07/12/21 23:39 Not Given ONETIME ONE Ondansetron HCl Confirm 07/13/21 06:19 Ondansetron 4 Mg/2 Ml Sdv Administered 07/13/21 06:20 Dose 4 mg .ROUTE .STK-MED ONE Propofol Confirm 07/13/21 06:20 Propofol 200 Mg/20 Ml Sdv Administered 07/13/21 06:21 Dose 400 mg .ROUTE .STK-MED ONE Rocuronium Carriere Confirm 07/13/21 06:19 Rocuronium Carriere 50 Mg/5 Ml Syringe Administered 07/13/21 06:20 Dose 50 mg .ROUTE .STK-MED ONE Sugammadex Sodium Confirm 07/13/21 06:20 Sugammadex Sodium 200 Mg/2 Ml Vial Administered 07/13/21 06:21 Dose 200 mg .ROUTE .STK-MED ONE Sugammadex Sodium Confirm 07/13/21 06:21 Sugammadex Sodium 200 Mg/2 Ml Vial Administered 07/13/21 06:22 Dose 200 mg .ROUTE .STK-MED ONE - Re-Assessments/Exams Free Text/Narrative Re-Assessment/Exam: 07/13/21 02:19 Patient's CAT scan shows appendicitis. Patient will be started antibiotics and maintenance fluids patient will be seen by surgery morning likely have his taken to the OR at 5 AM Departure - Departure Time of Disposition: 02:18 Disposition: Refer to Observation Condition: Good Clinical Impression: Appendicitis - Discharge Information Sepsis Event Note (ED) - Evaluation Sepsis Screening Result: No Definite Risk - Focused Exam Vital Signs: Vital Signs Temp Pulse Resp BP Pulse Ox 07/13/21 06:33 96 18 113/80 97 07/13/21 05:15 93 19 113/80 95 07/13/21 04:03 92 19 116/72 95 07/13/21 00:36 100 111/57 L 90 L 07/12/21 23:26 94 128/64 96 07/12/21 23:07 98.2 F 96 20 134/70 94 L - My Orders Last 24 Hours: My Active Orders 07/13/21 02:30 Sodium Chloride 0.9% [Normal Saline] 1,000 ml IV ASDIRECTED 07/13/21 05:08 Patient Status [ADT] Routine - Assessment/Plan Last 24 Hours: My Active Orders 07/13/21 02:30 Sodium Chloride 0.9% [Normal Saline] 1,000 ml IV ASDIRECTED 07/13/21 05:08 Patient Status [ADT] Routine Plan: Patient is a six 5-year-old male presents today for diffuse abd pain with some distention. Will obtain labs x-ray likely CT abdomen pelvis to look for any free air and provide pain control
[2021-07-12] MEDS ORDERED: Ondansetron 4 MG/2 ML SDV IVPUSH ONE ×2 (23:38)
[2021-07-13] LABS: BLOOD UREA NITROGEN,BUN 10 mg/dL (7.0-18.0); CARBON DIOXIDE,CO2 28.9 mmol/L (21.0-32.0); CHLORIDE,CL 95 mmol/L (98-107); GLUCOSE RANDOM 173 mg/dL (74-106); LIPASE 71 U/L (73-393); SODIUM,NA 136 mmol/L (136-148)
--- NOTE | 2021-07-13 00:59 | CR ---
INDICATION: Abdominal distention TECHNIQUE: Chest radiograph 1 view COMPARISON: 06/15/2017 FINDINGS: The sensitivity and specificity of the exam are moderately limited by the patient`s body habitus. Mediastinum: The mediastinum is normal in appearance. The heart silhouette is normal in size and morphology. Lung: Minimal left basilar atelectasis is noted. No sign of pleural effusion seen. No pneumothorax is identified. Bone and Soft tissue: Unremarkable for age. IMPRESSION: 1. Minimal left basilar atelectasis is noted. Dictated by Denis Albert MD @ 07/13/2021 12:57:28 AM Dictated by: Denis Albert MD @ 07/13/2021 00:57:32 (Electronically Signed)
[2021-07-13] MEDS ORDERED: Iopamidol 755 MG/ML 500 ML Multipack Bottle IVPUSH STA (01:16)
--- NOTE | 2021-07-13 02:00 | CT ---
INDICATION: Diffuse abdominal pain TECHNIQUE: CT Abdomen and pelvis with i.v. contrast. Coronal and sagittal reformats were obtained. CONTRAST: 100 mL Isovue 370 COMPARISON: None FINDINGS: Lower chest: There is a 3 mm calcified granuloma present right middle lobe. Liver: Unremarkable. Spleen: Unremarkable. Pancreas: Unremarkable. Gallbladder: Mild nonspecific gallbladder distention is present. Kidney: There is a 2 mm density in the upper pole of the left kidney which may represent a small intrarenal stone. Adrenal: Unremarkable. Bowel: Severe diverticulosis of the sigmoid colon is present The appendix is distended measuring 20 mm. There is severe wall thickening and surrounding inflammatory changes noted. No periappendiceal abscess is seen. There are luminal densities in the appendix which are likely due to appendicoliths. Vascular: Unremarkable. Lymph: Unremarkable. Peritoneum: Unremarkable. No pneumoperitoneum is seen. Trace ascites is seen in the right anterior perihepatic space. Pelvis: Unremarkable. Soft tissue: Unremarkable. Bone: Unremarkable for age. IMPRESSIONS: 1. The appendix is distended measuring 20 mm. There is severe wall thickening and surrounding inflammatory changes noted. No periappendiceal abscess is seen. These findings are consistent with acute appendicitis. 2. Trace ascites is seen in the right anterior perihepatic space. Dictated by Denis Albert MD @ 07/13/2021 1:58:26 AM Please note that all CT scans at this facility use dose modulation, iterative reconstruction, and/or weight-based dosing when appropriate to reduce radiation dose to as low as reasonably achievable. Dictated by: Denis Albert MD @ 07/13/2021 01:59:08 (Electronically Signed)
[2021-07-13] MEDS ORDERED: cefOXitin 2 GM in Sodium Chloride 0.9% 100 ML IV ONE (02:06)
[2021-07-13] MEDS ORDERED: Sodium Chloride 0.9% 1,000 ML IV SCH (02:30)
[2021-07-13] MEDS ORDERED: cefOXitin 2 GM in Premix Bag 1 BAG IV ONE (02:47)
[2021-07-13] MEDS ORDERED: Bupivacaine 0.5% 10 ML SDV ONE (06:07)
[2021-07-13] MEDS ORDERED: Octyl 2-Cyanoacrylate 1 Tube ONE (06:08)
[2021-07-13] MEDS ORDERED: Rocuronium Bromide 50 MG/5 ML Syringe ONE ×2 (06:19→07:25)
[2021-07-13] MEDS ORDERED: Dexamethasone 4 MG/ML 5 ML MDV ONE (06:19)
[2021-07-13] MEDS ORDERED: Lidocaine 2% 100 MG/5 ML Syringe ONE (06:19)
[2021-07-13] MEDS ORDERED: Ondansetron 4 MG/2 ML SDV ONE (06:19)
[2021-07-13] MEDS ORDERED: Midazolam 1 MG/ML 2 ML SDV ONE (06:20)
[2021-07-13] MEDS ORDERED: Sugammadex Sodium 200 MG/2 ML VIAL ONE ×2 (06:20→06:21)
[2021-07-13] MEDS ORDERED: Propofol 200 MG/20 ML SDV ONE (06:20)
[2021-07-13] MEDS ORDERED: fentaNYL 100 MCG/2 ML SDV ONE (06:20)
--- NOTE | 2021-07-13 07:42 | PCM.PREANE ---
Preanesthetic Assessment - Procedure Proposed Procedure: Lap Appy - Anesthesia/Transfusion/Family Hx Anesthesia History: Prior Anesthesia Without Reaction Other Type of Anesthesia Reaction Comment: Pt has only had sedation for Colonoscopy Transfusion History: No Prior Transfusion(s) Intubation History: Unknown - Review of Systems General: No Symptoms Pulmonary: No Symptoms Cardiovascular: No Symptoms Gastrointestinal: Abdominal Pain, Decreased Appetite, Nausea Neurological: No Symptoms Other: Reports: None - Physical Assessment NPO Status Date: 07/12/21 NPO Status Time: 21:00 Vital Signs: Last Vital Signs Temp 98.2 F 07/12/21 23:07 Pulse 96 07/13/21 06:33 Resp 18 07/13/21 06:33 BP 113/80 07/13/21 06:33 Pulse Ox 97 07/13/21 06:33 Height: 5 ft 11 in Weight: 131.542 kg ASA Class: 3E Mental Status: Alert & Oriented x3 Airway Class: Mallampati = 3 Dentition: Reports: Normal Dentition Thyro-Mental Finger Breadths: 3 Mouth Opening Finger Breadths: 3 ROM/Head Extension: Limited/Partial Lungs: Clear to Auscultation, Normal Respiratory Effort Cardiovascular: Regular Rate, Regular Rhythm - Lab Values: Laboratory Last Values WBC 7.22 K/uL (4.0-11.0) 07/12/21 23:28 RBC 4.73 M/uL (4.50-5.90) 07/12/21 23:28 Hgb 14.4 g/dL (13.0-17.0) 07/12/21 23:28 Hct 41.4 % (38.0-50.0) 07/12/21 23:28 MCV 87.5 fL (80.0-98.0) 07/12/21 23:28 MCH 30.4 pg (27.0-32.0) 07/12/21 23:28 MCHC 34.8 g/dL (31.0-37.0) 07/12/21 23:28 RDW Std Deviation 44.3 fl (28.0-62.0) 07/12/21 23:28 RDW Coeff of Polly 14 % (11.0-15.0) 07/12/21 23:28 Plt Count 327 K/uL (150-400) 07/12/21 23:28 MPV 9.50 fL (7.40-12.00) 07/12/21 23: Neut % (Auto) 81.0 % (48.0-80.0) H 07/12/21: Lymph % (Auto) 12.7 % (16.0-40.0) L 07/12/21: [place] % (Auto) 6.1 % (0.0-15.0) 07/12/21: Eos % (Auto) 0.1 % (0.0-7.0) 07/12/21: Baso % (Auto) 0.1 % (0.0-1.5) 07/12/21: Neut # (Auto) 5.8 K/uL (1.4-5.7) H 07/12/21: Lymph # (Auto) 0.9 K/uL (0.6-2.4) 07/12/21: [place] # (Auto) 0.4 K/uL (0.0-0.8) 07/12/21: Eos # (Auto) 0.0 K/uL (0.0-0.7) 07/12/21: Baso # (Auto) 0.0 K/uL (0.0-0.1) 07/12/21: Nucleated RBC % 0.0 /100WBC 07/12/21: Nucleated RBCs # 0 K/uL 07/12/21: Sodium 136 mmol/L (136-148) 07/12/21 23: Potassium 4.0 mmol/L (3.5-5.1) 07/12/21: Chloride 95 mmol/L (98-107) L 07/12/21: Carbon Dioxide 28.9 mmol/L (21.0-32.0) 07/12/21: BUN 10 mg/dL (7.0-18.0) 07/12/21: Creatinine 1.2 mg/dL (0.8-1.3) 07/12/21: Est Cr Clr Drug Dosing 64.49 mL/min 07/12/21 23: Estimated GFR (MDRD) > 60.0 ml/min 07/12/21 23: Glucose 173 mg/dL (74-106) H 07/12/21 23:28 Lactic Acid 1.9 mmol/L (0.4-2.0) 07/12/21 23:28 Calcium 8.4 mg/dL (8.5-10.1) L 07/12/21 23:28 Phosphorus 3.3 mg/dL (2.6-4.7) 07/12/21 23:28 Magnesium 1.5 mg/dL (1.8-2.4) L 07/12/21 23:28 Total Bilirubin 0.6 mg/dL (0.2-1.0) 07/12/21 23:28 AST 17 IU/L (15-37) 07/12/21 23:28 ALT 28 IU/L (14-63) 07/12/21 23:28 Alkaline Phosphatase 71 U/L (46-116) 07/12/21 23:28 Total Protein 8.1 g/dL (6.4-8.2) 07/12/21 23:28 Albumin 3.5 g/dL (3.4-5.0) 07/12/21 23:28 Globulin 4.6 g/dL (2.6-4.0) H 07/12/21 23:28 Albumin/Globulin Ratio 0.8 (0.9-1.6) L 07/12/21 23:28 Lipase 71 U/L (73-393) L 07/12/21 23:28 SARS-CoV-2 RNA (ARJUN) NEGATIVE (NEGATIVE) 07/13/21 02:28 - Allergies Allergies/Adverse Reactions: Allergies Allergy/AdvReac Type Severity Reaction Status Date / Time lisinopril Allergy Cough Verified 07/12/21 23:06 Penicillins Allergy Hives Verified 07/12/21 23:06 - Acknowledgements Anesthesia Type Planned: General Anesthesia Pt an Appropriate Candidate for the Planned Anesthesia: Yes Alternatives and Risks of Anesthesia Discussed w Pt/Guardian: Yes Pt/Guardian Understands and Agrees with Anesthesia Plan: Yes PreAnesthesia Questionnaire HEENT History: Reports: Other (See Below) Other HEENT History: wears glasswes, has lower permanent dental bridge (right side), states has infection in upper jaw per MRI- no symptoms Cardiovascular History: Reports: High Cholesterol, Hypertension, OR Other Cardiovascular History: states OR per EKG- no symptoms but was told it was stress related Respiratory History: Reports: Sleep Apnea, Other (See Below) Other Respiratory History: was told by Anesthesia he had sleep apnea- has never been tested Gastrointestinal History: Reports: None Genitourinary History: Reports: BPH Musculoskeletal History: Reports: Osteoarthritis Other Musculoskeletal History: arthritis in neck Neurological History: Reports: None Psychiatric History: Reports: Other (See Below) Other Psychiatric History: states "due to stress related heart attack they put me on venlafaxine" Endocrine/Metabolic History: Reports: Obesity/BMI 30+, Other (See Below) Other Endocrine/Metabolic History: pre-diabetic Hematologic History: Reports: None Immunologic History: Reports: None Oncologic (Cancer) History: Reports: None Dermatologic History: Reports: None - Infectious Disease History Infectious Disease History: Reports: Chicken Pox, Measles, Shingles - Past Surgical History Head Surgeries/Procedures: Reports: None HEENT Surgical History: Reports: None Cardiovascular Surgical History: Reports: None Other Cardiovascular Surgeries/Procedures: states had angiogram and everything was ok, no stents Respiratory Surgical History: Reports: None GI Surgical History: Reports: Colonoscopy Male Surgical History: Reports: None Endocrine Surgical History: Reports: None Neurological Surgical History: Reports: None Musculoskeletal Surgical History: Reports: None Oncologic Surgical History: Reports: None Dermatological Surgical History: Reports: None - SUBSTANCE USE Tobacco Use Status *Q: Never Tobacco User Recreational Drug Use History: Yes Recreational Drug Type: Reports: Marijuana/Hashish - HOME MEDS Home Medications: Home Meds Aspirin [[place] Aspirin EC] 81 mg PO DAILY 08/25/16 [History] Venlafaxine HCl [Venlafaxine HCl ER] 150 mg PO DAILY 08/25/16 [History] atorvaSTATin Calcium [Atorvastatin Calcium] 40 mg PO BEDTIME 08/25/16 [History] Cyclobenzaprine HCl 10 mg PO ASDIRECTED PRN 11/22/19 [History] Losartan Potassium 25 mg PO BEDTIME 11/22/19 [History] Cholecalciferol (Vitamin D3) [Vitamin D3] 400 unit PO DAILY 07/05/21 [History] Folic Acid 1 mg PO DAILY 07/05/21 [History] Multivitamin 1 tab PO DAILY 07/05/21 [History] Semaglutide [Ozempic] 0.5 ml SQ WEEKLY 07/05/21 [History] Sildenafil Citrate [Viagra] 100 mg PO ASDIRECTED PRN 07/05/21 [History] diphenhydrAMINE HCL [Benadryl Allergy] 25 mg PO BEDTIME PRN 07/05/21 [History] - CURRENT (IN HOUSE) MEDS Current Meds: Current Medications Sodium Chloride (Normal Saline) 1,000 mls @ 150 mls/hr IV ASDIRECTED RENEA Last Admin: 07/13/21 02:44 Dose: 150 mls/hr Documented by: Discontinued Medications Bupivacaine HCl (Bupivacaine 0.5% 10 Ml Sdv) Confirm Administered Dose 10 ml .ROUTE .STK-MED ONE Stop: 07/13/21 06:08 Dexamethasone (Dexamethasone 4 Mg/Ml 5 Ml Mdv) Confirm Administered Dose 20 mg .ROUTE .STK-MED ONE Stop: 07/13/21 06:20 Fentanyl (Fentanyl 100 Mcg/2 Ml Sdv) Confirm Administered Dose 200 mcg .ROUTE .STK-MED ONE Stop: 07/13/21 06:21 Cefoxitin Sodium 2 gm/ Sodium (Chloride) 100 mls @ 200 mls/hr IV ONETIME ONE Stop: 07/13/21 02:35 Last Admin: 07/13/21 02:44 Dose: Not Given Documented by: Cefoxitin Sodium (Mefoxin In Dextrose,Iso-Osm 2 Gm/50 Ml) Confirm Administered Dose 50 mls @ as directed .ROUTE .ST-MED ONE Stop: 07/13/21 02:30 Last Admin: 07/13/21 02:47 Dose: Not Given Documented by: Cefoxitin Sodium 2 gm/ Premix 50 mls @ 100 mls/hr IV ONETIME ONE Stop: 07/13/21 03:16 Last Admin: 07/13/21 03:00 Dose: 100 mls/hr Documented by: Acetaminophen (Ofirmev 1000 Mg/100 Ml) Confirm Administered Dose 100 mls @ as directed .ROUTE .STK-MED ONE Stop: 07/13/21 07:03 Iopamidol (Iopamidol 755 Mg/Ml 500 Ml Multipack Bottle) 100 ml IVPUSH ONETIME STA Stop: 07/13/21 01:17 Last Admin: 07/13/21 01:16 Dose: 100 ml Documented by: Lidocaine HCl (Lidocaine 2% 100 Mg/5 Ml Syringe) Confirm Administered Dose 100 mg .ROUTE .STK-MED ONE Stop: 07/13/21 06:20 Midazolam HCl (Midazolam 1 Mg/Ml 2 Ml Sdv) Confirm Administered Dose 2 mg .ROUTE .STK-MED ONE Stop: 07/13/21 06:21 Morphine Sulfate (Morphine 4 Mg/Ml Syringe) 4 mg IVPUSH ONETIME ONE Stop: 07/12/21 23:33 Last Admin: 07/12/21 23:37 Dose: 4 mg Documented by: Octyl Cyanoacrylate (Octyl 2-Cyanoacrylate 1 Tube) Confirm Administered Dose 1 applic .ROUTE .STK-MED ONE Stop: 07/13/21 06:09 Ondansetron HCl (Ondansetron 4 Mg/2 Ml Sdv) 4 mg IVPUSH ONETIME ONE Stop: 07/12/21 23:39 Last Admin: 07/12/21 23:41 Dose: 4 mg Documented by: Ondansetron HCl (Ondansetron 4 Mg/2 Ml Sdv) 4 mg IVPUSH ONETIME ONE Stop: 07/12/21 23:39 Last Admin: 07/12/21 23:41 Dose: Not Given Documented by: Ondansetron HCl (Ondansetron 4 Mg/2 Ml Sdv) Confirm Administered Dose 4 mg .ROUTE .STK-MED ONE Stop: 07/13/21 06:20 Propofol (Propofol 200 Mg/20 Ml Sdv) Confirm Administered Dose 400 mg .ROUTE .STK-MED ONE Stop: 07/13/21 06:21 Rocuronium [place] (Rocuronium [place] 50 Mg/5 Ml Syringe) Confirm Administered Dose 50 mg .ROUTE .STK-MED ONE Stop: 07/13/21 06:20 Rocuronium [place] (Rocuronium [place] 50 Mg/5 Ml Syringe) Confirm Administered Dose 50 mg .ROUTE .STK-MED ONE Stop: 07/13/21 07:26 Sugammadex Sodium (Sugammadex Sodium 200 Mg/2 Ml Vial) Confirm Administered Dose 200 mg .ROUTE .STK-MED ONE Stop: 07/13/21 06:21 Sugammadex Sodium (Sugammadex Sodium 200 Mg/2 Ml Vial) Confirm Administered Dose 200 mg .ROUTE .STK-MED ONE Stop: 07/13/21 06:22
--- NOTE | 2021-07-13 07:48 | CONS ---
DATE OF CONSULTATION: 07/13/2021 DATE OF : 1955 PRIMARY CARE PHYSICIAN: Douglas Epps NP HISTORY OF PRESENT ILLNESS: The patient is a pleasant 65-year-old gentleman who says yesterday afternoon at 1 o'clock he started getting some mild tenderness. At first, it was kind of around his whole abdomen, and throughout the day, it got worse, and switched more towards his mid lower right abdomen. Did come into the ER for evaluation. The patient says he was feeling hot and chills and sweats, but denied any fever at home. He said he thought he was having the flu, so he made himself vomit. He said he had a normal bowel movement. The patient was evaluated in the ER. He did have a CT scan which showed a dilated 2 cm appendix with wall thickening and surrounding inflammatory changes. No abscess seen. Also likely appendicolith in the appendix. He had a small trace ascites in the right anterior perihepatic space. Did have labs. Did not have a white cell count. His white cell count was 7.22, was starting to have a shift, 81% neutrophils. Of note, the patient also had a colonoscopy this past Monday by Dr. Jones. Looks like this went well. He had 2 small sessile polyps removed at 100 cm and 85 cm. These were removed with cold biopsy polypectomies. The patient says after the colonoscopy and for the couple of days afterwards, he has felt fine and no abdominal pain. The patient reports having intermittent lower abdominal cramping over the last year or two . PAST MEDICAL HISTORY: 1. Significant for hypertension. 2. Anxiety, depression. 3. Hypercholesterolemia. MEDICATIONS: 1. Aspirin 81 mg p.o. daily. 2. Atorvastatin 40 mg p.o. daily. 3. Losartan 25 mg p.o. daily. 4. Effexor. 5. Multivitamins, although he says he has not taken his multivitamins in a week. ALLERGIES: 1. Lisinopril. 2. Penicillin. Lisinopril causes a cough. Penicillin causes hives. PAST SURGICAL HISTORY: The patient denies any. FAMILY HISTORY: 1. Sister with lung cancer. 2. Mother with congestive heart failure. SOCIAL HISTORY: 1. The patient says he does smoke marijuana but has not in the last week. 2. Denies any tobacco use. 3. Denies any alcohol use. REVIEW OF SYSTEMS: Complete 12-point review of systems was done, was negative except for what was in HPI. PHYSICAL EXAMINATION: GENERAL: The patient is lying comfortably in his clinic room. He is alert and oriented, in no acute distress. VITALS: Temperature is 98.2, pulse is 93, blood pressure is 113/80, and saturating 95% on room air. HEENT: Head is normocephalic and atraumatic. LUNGS: Some slight extra wheezing bilaterally, but no rhonchi heard. ABDOMEN: Soft and nondistended. He does have central obesity. He is tender more in the periumbilical to below right abdomen. Most painful section is at McBurney point. No rebound tenderness. EXTREMITIES: No edema. NEUROLOGIC: Grossly no neurological or musculoskeletal deficit noted. LABORATORY DATA: White cell count is 7.22, hemoglobin is 14.4, platelet count is 327. Sodium 136, potassium 4, chloride 95, BUN 10, creatinine 1.2, glucose is 173. Lactic acid 1.9. COVID is negative. IMAGING: Did review the report and looked at the imaging. It is as per HPI. ASSESSMENT AND PLAN: The patient is a pleasant 65-year-old gentleman, most likely has acute appendicitis. I did go over with the patient what appendix was, went over that we usually remove this laparoscopically. I went over the risks, goals, and alternatives of the procedure. Risks include, but not limited to, bleeding, infection, abscess formation, failure of staple line, need to convert to open, injury to nearby structures, hernia formation, and abscess formation. Also, the patient has had a recent colonoscopy, so this could be some type of microperforation. This is lower on my differential because the appendix is dilated and inflamed, and there is no free air suggestive of any perforation, but I did go over with the patient that if there is one, he might require some type of bowel resection, repair of that. The patient says he understands. I answered all the patient's questions. The patient has already received antibiotics by the ER, and we are awaiting OR staff to take him back to OR once they are here for laparoscopic appendectomy and possible indicated procedures. KEITH / JUAN DIEGO /[id number] DERIK
[2021-07-13] MEDS ORDERED: Ondansetron 4 MG/2 ML SDV IVPUSH PRN ×2 (07:49→09:52)
[2021-07-13] MEDS ORDERED: Naloxone 0.4 MG/ML SDV IVPUSH PRN (07:49)
[2021-07-13] MEDS ORDERED: fentaNYL 100 MCG/2 ML SDV IVPUSH PRN (07:49)
[2021-07-13] MEDS ORDERED: Morphine 2 MG/ML SYRINGE IVPUSH PRN (07:49)
[2021-07-13] MEDS ORDERED: Albuterol 0.083% 2.5 MG/3 ML Neb Soln NEB PRN (07:49)
[2021-07-13] MEDS ORDERED: Morphine 4 MG/ML Syringe ONE (09:17)
[2021-07-13] MEDS ORDERED: HYDROmorphone 1 MG/ML Syringe IVPUSH PRN (09:52)
[2021-07-13] MEDS ORDERED: Acetaminophen 1,000 MG in Premix Bag 1 BAG IV PRN (09:52)
--- NOTE | 2021-07-13 09:52 | PCM.OPNOTE ---
- General Post-Op/Procedure Note Date of Surgery/Procedure: 07/13/21 Operative Procedure(s): Laparoscopic appendectomy Findings: Perforated appendix dictation number [id number] Pre Op Diagnosis: Appendicitis Post-Op Diagnosis: perforated appendicitis Primary Surgeon: Teofilo Aguilar Pathology: appendix EBL in mLs: 10 Surgical Drain/Tube Type: William Varela Flat Drain Complications: None Condition: Stable
[2021-07-13] MEDS ORDERED: Piperacillin/Tazobactam 3.375 GM in Sodium Chloride 0.9% 100 ML IV SCH (10:00)
--- NOTE | 2021-07-13 10:05 | PCM.POSTAN ---
POST ANESTHESIA ASSESSMENT - MENTAL STATUS Mental Status: Somnolent - VITAL SIGNS Vital Signs: Last Vital Signs Temp 98.2 F 07/13/21 10:02 Pulse 79 07/13/21 10:02 Resp 30 H 07/13/21 10:02 BP 100/54 L 07/13/21 10:02 Pulse Ox 95 07/13/21 10:02 - RESPIRATORY Respiratory Status: Respiratory Rate WNL, Airway Patent, O2 Saturation Stable - CARDIOVASCULAR CV Status: Pulse Rate WNL, Blood Pressure Stable - GASTROINTESTINAL GI Status: No Symptoms - PAIN Free Text/Narrative:: Resting comfortably - POST OP HYDRATION Hydration Status: Adequate & Stable
--- NOTE | 2021-07-13 10:10 | PCM48HPAN ---
Post Anesthesia Note - EVALUATION WITHIN 48HRS OF ANESTHETIC Vital Signs in Normal Range: Yes Patient Participated in Evaluation: Yes Respiratory Function Stable: Yes Airway Patent: Yes Cardiovascular Function Stable: Yes Hydration Status Stable: Yes Pain Control Satisfactory: Yes Nausea and Vomiting Control Satisfactory: Yes Mental Status Recovered: Yes Vital Signs: Last Vital Signs Temp 98.2 F 07/13/21 10:02 Pulse 81 07/13/21 10:07 Resp 24 H 07/13/21 10:07 BP 103/47 L 07/13/21 10:07 Pulse Ox 95 07/13/21 10:07 - COMMENTS/OBSERVATIONS Free Text/Narrative:: Pt doing well post-op. VSS. No apparent anesthetic complications. Dr. Blanco Ghosh
[2021-07-13] MEDS: Ertapenem 1 GM in Sodium Chloride 0.9% 50 ML IV SCH (11:50)
[2021-07-13] MEDS: Lactated Ringers 1,000 ML IV SCH ×2 (11:51→13:14)
--- NOTE | 2021-07-13 11:54 | OR ---
SURGEON: DARY KELLY MD DATE OF PROCEDURE: 07/13/2021 PREOPERATIVE DIAGNOSIS: Acute appendicitis. POSTOPERATIVE DIAGNOSIS: Perforated appendicitis. PROCEDURE PERFORMED: Laparoscopic appendectomy. PRIMARY SURGEON: Dary Kelly MD PATHOLOGY: Appendix. ESTIMATED BLOOD LOSS: 10 mL. SPECIMEN: Appendix. DRAIN: William-Varela flat drain. REASON FOR PROCEDURE: The patient is a pleasant 65-year-old gentleman who started having abdominal pains yesterday afternoon that got worse throughout the day, went from all over to more of the middle to right lower abdomen. CT scan showed dilated and thickened appendix. I did go over with the patient the risks, goals, and alternatives of the procedure which include but not limited to bleeding, infection, abscess formation, injury to underlying structures, injury to ureter and small bowel, hernia formation, need to convert to open, or this could be something other than appendicitis. He also did have colonoscopy this week, could be some type of perforation but does look like appendicitis on the CT scan. The patient understands and wishes to proceed. OPERATIVE NARRATIVE: The patient was brought to the OR. He was prepped and draped in regular sterile fashion. SCDs placed. Mccracken catheter placed. Antibiotics have been given in the ER and anesthesia by the anesthesia team. Time-out was performed. An incision was made in the left upper abdomen, and a 5 mm trocar was placed using the Optiview port with a 5 mm camera into the abdomen and insufflation began, and pneumoperitoneum was established. Now, a 12 mm trocar was placed in the left lower abdomen and a 5 in the mid left side. The patient was placed in the head-down position, airplaned towards myself. The patient did have what looked like some more murky greenish fluid in the pelvis. This was suctioned out. The appendix was found. It was walled off by the small bowel. It did have some slight adhesions that were dissected off with blunt dissection. The appendix was fairly thickened and edematous. It did look like it had a perforation. The appendix was carefully dissected out. I did go down the mesoappendix with the Harmonic scalpel. Again, the appendix was fairly indurated and thickened. The appendix did separate. Luckily, there was still fairly good piece of stump. Now, the mesoappendix was continued to dissect off. To further help with dissection, I did mobilize the cecum of the appendix to give some more mobilization. I did upgrade the mid left 5 trocar to a 12 trocar. I did expose what looked to be the rest of the appendix down to the cecum. This actually looked to be less inflamed. The stump was cleared up. I did try to use a blue load linear stapler. However, because of the patient's body habitus, the angle was not the greatest, so this was changed up to using an endoloop. I did place a 5 mm trocar at the umbilicus to help with exposure because of his body habitus. This gave good exposure. Now, a 0 PDS endoloop was placed around the stump in what appeared to be good tissue and tightened. I had good closure. The suture was cut. Now, the rest of abdomen was inspected. I did do a lot of suction irrigation. I did have good stump closure with PDS. Mesoappendix was clean, had good hemostasis. Now, the left lower incision trocar was removed and closed with 0 Vicryl. A small incision was made in the left mid abdomen, and a flat William-Varela was placed through, and this was placed in the right lower abdomen at the operative space. Now, the other 12 mm trocar was removed and closed with 0 Vicryl. Abdomen was inspected. The pneumoperitoneum was now released, and other two 5 mm trocars were removed. The 12 mm trocar sites were closed with 3- 0 Vicryl and injected with the rest of the local along with the 5 mm trocar sites. They were all closed with fortunato. The William-Varela was secured in place with 3-0 silk. At the end of case, sponge and needle count were correct, and the patient was transferred to recovery room in stable condition. KEITH ADAMSON /[id number] DERIK
--- NOTE | 2021-07-13 20:39 | PN ---
SUBJECTIVE: The patient is status post laparoscopic appendectomy for perforated appendicitis. The patient this evening, says he feels much better than this morning, and he feels really good. He has been tolerating his liquid diet. No nausea, vomiting. Has not been passing flatus and has been able to urinate per self. He has no complaints. OBJECTIVE: GENERAL: The patient is resting comfortably in room. He is alert and oriented, in no acute distress. VITAL SIGNS: Temperature is 97.1, pulse is 76, blood pressure is 126/58, saturating 95% on 2 L. ABDOMEN: Soft, maybe some mild bloating and obesity. Incisions are all covered, clean and dry. His abdominal pain is much better and mainly just incisional currently. SARA drain has a kind of a serous/purulent aspect to it. Did discuss with the nurse, apparently it was a little bit more of the purulence and it has been getting clearer and clearer throughout the day. ASSESSMENT AND PLAN: The patient is a pleasant 65-year-old gentleman. He is status post laparoscopic appendectomy earlier this morning for a perforated appendicitis. I did answer questions about the surgery. The patient says he is feeling much better, he is wanting to go home. I did go over with the patient that he does have a perforated appendicitis and most likely will need to be in the hospital for a couple of days. I did go over that he is at a much higher risk of abscess formation or even failure of his appendix closure because of the perforation and inflammation. The patient says he understands. All his questions were answered. I did encourage the patient that he needs to ambulate and he use his IS. I did speak to the nurse about continuing going over IS with the patient and encourage ambulation. KEITH ADAMSON /[id number] DERIK
[2021-07-13] MEDS: Losartan 50 MG Tab PO SCH (20:42)
[2021-07-13] MEDS: atorvaSTATin 40 MG Tab PO SCH (20:42)
[2021-07-14 07:30] LABS: BLOOD UREA NITROGEN,BUN 12 mg/dL (7.0-18.0); CARBON DIOXIDE,CO2 28.3 mmol/L (21.0-32.0); CHLORIDE,CL 100 mmol/L (98-107); GLUCOSE RANDOM 109 mg/dL (74-106); POTASSIUM,K 3.8 mmol/L (3.5-5.1); SODIUM,NA 139 mmol/L (136-148)
[2021-07-14] MEDS: Venlafaxine 75 MG Cap.ER PO SCH (09:26)
[2021-07-14] MEDS: Aspirin 81 MG Tab.EC PO SCH (09:26)
[2021-07-14] MEDS: Ertapenem 1 GM in Sodium Chloride 0.9% 50 ML IV SCH (11:04)
[2021-07-14] MEDS: Acetaminophen/HYDROcodone 325-5 MG Tab PO PRN (12:35)
--- NOTE | 2021-07-14 13:56 | PN ---
SUBJECTIVE: Patient says he is feeling pretty good this morning. He is again feeling way better since before the surgery. He has been up. He has been urinating. On speaking with his nurse, he had 30 out of the SARA, each time it comes clearer and more serous. The patient reports minimal pain. He denies any nausea, vomiting, but has not passed any flatus yet. OBJECTIVE: GENERAL: Patient is sitting comfortably in his room. He is alert and oriented, in no acute distress. VITAL SIGNS: Temperature is 99.3, pulse is 95, blood pressure is 113/62, and saturating 95% on 2 L. ABDOMEN: Soft. Some moderate bloating and some minimal incisional tenderness. SARA has more serous but slightly clouded fluid. LABORATORY DATA: White count is 12.28, hemoglobin is 11.9, platelet count is 318. ASSESSMENT AND PLAN: The patient is a pleasant 65-year-old gentleman postop day #1 from laparoscopic appendectomy for perforated appendicitis. He is doing well. I did go over he can advance his diet to full liquid diet. We would like to wait for some flatus. I did go over with the patient that he is at high risk for ileus. I went over this with the patient. I again encouraged him to get up and ambulate and to use his IS. He did have a slight bump in his white cell count, but this is likely just postsurgical, but we want to keep an eye on it. He has been afebrile. Discussed the patient with his nurse. KEITH ADAMSON /[id number]
[2021-07-14] MEDS ORDERED: Sodium Chloride 0.9% 10 ML Syringe FLUSH PRN (15:12)
[2021-07-14] MEDS ORDERED: Sodium Chloride 0.9% 2.5 ML Syringe FLUSH PRN (15:12)
--- NOTE | 2021-07-14 18:07 | PN ---
SUBJECTIVE: The patient said he had a good day. He has no complaints. Again, he says he feels really good. He has been up and ambulating and he says urinating quite a bit. OBJECTIVE: GENERAL: He is lying comfortably in his bed. He is alert and oriented, in no acute distress. ABDOMEN: Soft. Some moderate distention, really just some minimal incisional tenderness. SARA has some slightly cloudy serous fluid. ASSESSMENT AND PLAN: Patient is a pleasant 65-year-old gentleman, postoperative day #1 from laparoscopic appendectomy for perforated appendicitis. He was doing well throughout the day. He was upgraded to a full liquid diet. He is not passing flatus yet, but he says he feels like he is almost going to it. Discussed with nursing staff. We will saline lock him. KEITH ADAMSON /[id number]
[2021-07-14] MEDS: Losartan 50 MG Tab PO SCH (20:25)
[2021-07-14] MEDS: atorvaSTATin 40 MG Tab PO SCH (20:25)
[2021-07-15] MEDS: Acetaminophen/HYDROcodone 325-5 MG Tab PO PRN (06:55)
[2021-07-15] MEDS: Venlafaxine 75 MG Cap.ER PO SCH (09:09)
[2021-07-15] MEDS: Aspirin 81 MG Tab.EC PO SCH (09:09)
[2021-07-15] MEDS: Ertapenem 1 GM in Sodium Chloride 0.9% 50 ML IV SCH (10:12)
--- NOTE | 2021-07-15 14:10 | PN ---
SUBJECTIVE: The patient says he is feeling very good. He has no complaints. He is passing some flatus. The patient states he is using IS and actually enjoys using it. He has been up and ambulating. No nausea or vomiting. OBJECTIVE: GENERAL: Resting comfortably in the room. He is alert and oriented, in no acute distress. VITAL SIGNS: Temperature is 98.3, pulse is 96, blood pressure is 134/78, saturating 96% on room air. LUNGS: He does have some slight wheezing bilaterally. This is same as preop. ABDOMEN: Soft. Moderate bloating, really minimal tenderness. SARA has more serous output, slightly cloudy, much improved from yesterday. SARA output yesterday was 90 mL. LABORATORY DATA: White cell count is 12.9 today. ASSESSMENT AND PLAN: The patient is a pleasant 65-year-old gentleman who is postop day #2 from laparoscopic appendectomy for perforated appendicitis. Doing quite well. We will advance his diet. He is on IV antibiotics. I did discuss with the patient probably about a day of IV antibiotics as long as he is feeling well and is afebrile, potentially send him home tomorrow. I did go over the patient with his nurse. KEITH / JUAN DIEGO /[id number]
[2021-07-16] MEDS: Losartan 50 MG Tab PO SCH (04:10)
[2021-07-16] MEDS: atorvaSTATin 40 MG Tab PO SCH (04:11)
[2021-07-16] MEDS: Venlafaxine 75 MG Cap.ER PO SCH (08:30)
[2021-07-16] MEDS: Aspirin 81 MG Tab.EC PO SCH (08:30)
[2021-07-16] MEDS: Ertapenem 1 GM in Sodium Chloride 0.9% 50 ML IV SCH (10:38)
--- NOTE | 2021-07-16 11:24 | PN ---
SUBJECTIVE: Patient reports again feeling great. He has no complaints. He has had 2 bowel movements. He says he is having very minimal if any abdominal tenderness. He did tolerate his diet. He has been up and ambulating. OBJECTIVE: GENERAL: He is lying comfortably in his room. He is alert and oriented, in no acute distress. VITAL SIGNS: Temperature is 97.4, pulse is 94, blood pressure is 142/82, and saturating 94% on room air. ABDOMEN: Soft and mildly bloated. Incisions are all dressed and clean. SARA has some minimal serous fluid. Nurse reports 120 for a total of 160 out yesterday. She has been unable to document in the electronic charts though. DATA: White cell count has normalized down to 10.92. ASSESSMENT AND PLAN: This is a pleasant 65-year-old gentleman postop day 3 from laparoscopic appendectomy for perforated appendicitis. He is doing well. He has had bowel movements, tolerating diet. Pain well controlled. His white cell count has normalized and has been afebrile. I did go over with the patient that he can go home today. He was sent home with 7 days worth of antibiotics. I will also leave the drain in. Patient is to see me on Monday for followup and likely removal of the drain. The patient has gotten training from the nursing about drain care and measuring. I did go over with the patient that he is at high risk of abscess formation since it was perforated. The patient is to come back in over the weekend if he has fevers, chills, nausea, or vomiting. Otherwise, we will see him on Monday. I did go over with the patient postoperative care such as avoiding heavy lifting or strenuous activities. He may shower with a shower wand. He has to make sure he keeps his incisions and drain site dry. All the patient's questions were answered. Discussed the patient with nursing staff. KEITH ADAMSON /[id number]
[2021-07-16 11:59] VITALS: BP 167/90; PULSE 71
--- NOTE | 2021-07-16 13:51 | DISCH ---
DATE OF DISCHARGE: 07/16/2021 PRIMARY CARE PHYSICIAN: Douglas Epps NP PRIMARY DISCHARGE DIAGNOSIS: Perforated appendicitis. SECONDARY DIAGNOSES: 1. Hypertension. 2. Anxiety and depression. 3. Hypercholesterolemia. PAST SURGICAL HISTORY: Laparoscopic appendectomy. REASON FOR ADMISSION: The patient is a pleasant 65-year-old gentleman who came into the ER with abdominal pain. He had a CT scan that showed a dilated appendix with wall thickening and surrounding inflammation. The patient was taken to the OR for laparoscopic appendectomy. He was found to be perforated. The patient underwent a laparoscopic appendectomy. He was admitted to the hospital for postoperative cares. HOSPITAL COURSE: The patient tolerated procedure well. He was admitted to the floor for IV antibiotics. The patient recovered well on the floor. His diet was slowly advanced. At time of discharge, the patient was tolerating oral diet. Pain control with oral pain medication, and his white cell count normalized. DISCHARGE INSTRUCTIONS: The patient was sent home with some antibiotics for 7 days. He should follow up with me on Monday for removal of his SARA. He was given drain care instructions by the nursing staff. He is to come back in sooner if he has any troubles or issues. He should take it easy and no heavy lifting or strenuous activities for the next 2 weeks. I did go over again with the patient that he is at increased risk of abscess formation since he did have a perforated appendix. All of the patient's questions were answered. DISCHARGE MEDICATIONS: 1. [place] 5/325 one to 2 tablets q.6 hours p.r.n. pain. 2. Levaquin 500 mg p.o. daily. 3. Flagyl 500 mg p.o. t.i.d. 4. Losartan 25 mg p.o. daily. 5. Ozempic 0.5 mg subcu weekly. 6. Atorvastatin 40 mg p.o. daily. 7. Venlafaxine 150 mg p.o. daily. KEITH / JUAN DIEGO /[id number]
== END 2021-07-16 12:30 | disposition home or self-care (01) | DRG 339 ==
LOC: MW.ED 22:24 → MW.SDS 07-13 05:08 → MW.MS 07-13 09:52
PROVIDERS: ADMIT Surgery; ATTEND Surgery
PROC: 0DTJ4ZZ Resection of Appendix, Percutaneous Endoscopic Approach (ICD-10-PCS; principal; 2021-07-13)
DX: K35.32 Acute appendicitis with perforation, localized peritonitis, and gangrene, without abscess (principal); Z68.41 Body mass index [BMI] 40.0-44.9, adult; H54.7 Unspecified visual loss; F41.9 Anxiety disorder, unspecified; F32.9 Major depressive disorder, single episode, unspecified; E78.00 Pure hypercholesterolemia, unspecified; I10 Essential (primary) hypertension; G47.30 Sleep apnea, unspecified; N40.0 Benign prostatic hyperplasia without lower urinary tract symptoms; M19.90 Unspecified osteoarthritis, unspecified site; E66.9 Obesity, unspecified; Z86.19 Personal history of other infectious and parasitic diseases; Z79.82 Long term (current) use of aspirin; I25.2 Old myocardial infarction; Z88.0 Allergy status to penicillin; Z88.8 Allergy status to other drugs, medicaments and biological substances; Z79.899 Other long term (current) drug therapy; Z20.822 Contact with and (suspected) exposure to COVID-19
CPT/HCPCS: 36415; 44970; 51702; 71045; 74177; 80053; 83605; 83690; 83735; 84100; 85025; 87635; 93005; 96365; 96375; 99285; A9270 ×2; J0131; J0694 ×3; J1100; J2250; J2270 ×2; J2405; J2704; J3490 ×3; J7030 ×2; Q9967; 80048; 82947; 88304; J1170; J1335; J3010; J7120; U0002

== ENCOUNTER 2022-11-22 11:52 | Emergency (ER) | payer OTHER ==
[2022-11-22] MEDS ORDERED: Sodium Chloride 0.9% 1,000 ML IV STA (12:43)
[2022-11-22 13:14] LABS: CARBON DIOXIDE,CO2 28.3 mmol/L (21.0-32.0); POTASSIUM,K 4.1 mmol/L (3.5-5.1)
[2022-11-22 13:21] LABS: CORONAVIRUS COVID-19 NAA NEGATIVE (NEGATIVE); INFLUENZA A NAA NEGATIVE (NEGATIVE); INFLUENZA B NAA NEGATIVE (NEGATIVE)
[2022-11-22] MEDS ORDERED: Iopamidol 755 MG/ML 500 ML Multipack Bottle IVPUSH ONE (13:47)
[2022-11-22] MEDS ORDERED: cefTRIAXone 2 GM in Premix Bag 1 BAG IV STA (15:01)
[2022-11-22 15:52] VITALS: BP 135/72; PULSE 78
== END 2022-11-22 15:59 | disposition home or self-care (01) ==
LOC: MW.ED 11:52
DX: K57.30 Diverticulosis of large intestine without perforation or abscess without bleeding (principal); N39.0 Urinary tract infection, site not specified; N13.2 Hydronephrosis with renal and ureteral calculous obstruction; E78.00 Pure hypercholesterolemia, unspecified; I10 Essential (primary) hypertension; I25.2 Old myocardial infarction; M19.90 Unspecified osteoarthritis, unspecified site; E66.9 Obesity, unspecified; Z68.41 Body mass index [BMI] 40.0-44.9, adult; Z88.8 Allergy status to other drugs, medicaments and biological substances; Z88.0 Allergy status to penicillin; Z79.82 Long term (current) use of aspirin; Z79.899 Other long term (current) drug therapy; Z20.822 Contact with and (suspected) exposure to COVID-19
CPT/HCPCS: 0240U; 36415; 71045; 71045-26; 74177; 74177-26; 80053; 81001; 83690; 83735; 83880; 84484; 85025; 87086; 93005; 93010; 96361; 96365; 99284; 99284-25; J0696; J7030; Q9967